=== PATIENT | female | born 1945 | race Caucasian/White ===

== ENCOUNTER 2023-07-24 17:35 | Emergency (ER) | payer MEDICARE, MEDICAID ==
[~2023-07-24] VITALS: Ht 152.4 cm; Wt 77.6 kg
[2023-07-24 17:47] LABS: BASOPHILS % (AUTO) 0 % (0-10); EOSINOPHILS # (AUTO) 0.2 10^3/uL (0.0-0.3); EOSINOPHILS % (AUTO) 2 % (0-10); HEMATOCRIT 36 % (35-52); HEMOGLOBIN 12.5 g/dL (11.5-16.0); LYMPHOCYTES # (AUTO) 1.2 10^3/uL (1.0-4.0); LYMPHOCYTES % (AUTO) 17 % (12-44); MEAN CORPUSCULAR HEMOGLOBIN 33 pg (25-34); MEAN CORPUSCULAR HGB CONC 35 g/dL (32-36); MEAN CORPUSCULAR VOLUME 95 fL (80-99); MEAN PLATELET VOLUME 9.2 fL (9.0-12.2); MONOCYTES # (AUTO) 0.5 10^3/uL (0.0-1.0); MONOCYTES % (AUTO) 7 % (0-12); NEUTROPHILS # (AUTO) 5.1 10^3/uL (1.8-7.8); NEUTROPHILS % (AUTO) 72 % (42-75); PLATELET COUNT 164 10^3/uL (130-400); WHITE BLOOD COUNT 7.1 10^3/uL (4.3-11.0)
--- NOTE | 2023-07-24 17:47 | ED Syncope ---
General Stated Complaint: NEAR SYNCOPE, UTI Source of Information: Patient, EMS Exam Limitations: No Limitations History of Present Illness Date Seen by Provider: Jul 24, 2023 Time Seen by Provider: 17:37 Initial Comments 77yoF with PMH of HTN and recent diagnosis of a UTI coming in via EMS from home after a syncopal episode. The patient got home from [facility] earlier, had suprapubic discomfort and dysuria. She went to walk-in care, had a urinalysis done and they stated that she had a bad UTI per the patient. She was started on ciprofloxacin which she took 1 dose. She went to [facility], then later went home. She had an episode of diarrhea that was nonbloody, and while sitting on the toilet, passed out. She woke up on the floor. Called EMS shortly after. She is unsure if she hit her head, does not believe she did, denies any headache, neck pain, back pain, extremity pain, or pain anywhere else. This is never really happened before. Denies any nausea, vomiting, fever, chills, focal weakness or numbness, or any other concerns. Allergies and Home Medications Allergies Coded Allergies: No Known Drug Allergies (Unverified , 07/24/23) Patient Home Medication List Home Medication List Reviewed: Yes Potassium Chloride (Potassium Chloride) 20 Meq Tablet.er, 20 MEQ PO DAILY Prescribed by: MISTY GUARDADO on 07/24/23 168 Review of Systems Constitutional: No fever EENTM: no symptoms reported Respiratory: no symptoms reported Cardiovascular: syncope Gastrointestinal: no symptoms reported Genitourinary: see HPI Musculoskeletal: no symptoms reported Skin: no symptoms reported Psychiatric/Neurological: No Symptoms Reported All Other Systems Reviewed Negative Unless Noted: Yes Past Elrtcws-Ykgive-Kluclb Hx Patient Social History Tobacco Use?: No Physical Exam Vital Signs Vital Signs - First Documented 07/24/23 17:38 Temp 36.6 Pulse 78 Resp 16 B/P (MAP) 157/67 (97) Pulse Ox 96 O2 Delivery Room Air Capillary Refill : Height, Weight, BMI Height: '" Weight: lbs. oz. kg; BMI Method: General Appearance: No Apparent Distress, WD/WN HEENT: PERRL/EOMI, Normal ENT Inspection, Pharynx Normal Neck: Full Range of Motion, Normal Inspection, Non Tender, Supple Cardiovascular: Regular Rate, Rhythm, No Edema, Normal Peripheral Pulses Respiratory: Chest Non Tender, Lungs Clear, Normal Breath Sounds, No Accessory Muscle Use, No Respiratory Distress Gastrointestinal: Normal Bowel Sounds, Non Tender, Soft; No Distended, No Guarding Back: Normal Inspection, No CVA Tenderness, No Vertebral Tenderness Extremities: Normal Capillary Refill, Normal Inspection, Normal Range of Motion, Non Tender, No Calf Tenderness, No Pedal Edema Neurologic/Psychiatric: Alert, Oriented x3, No Motor/Sensory Deficits, Normal 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, 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 Norm as Tested, Other (normal finger to nose, normal gait) Cranial Nerves: Normal Hearing, Normal Speech, PERRL Coordination/Gait: Normal Finger to Nose, Normal Gait Motor/Sensory: No Motor Deficit, No Sensory Deficit, No Pronator Drift Skin: Normal Color, Warm/Dry Progress/Results/Core Measures Results/Orders Lab Results Laboratory Tests Test 07/24/23 17:44 Range/Units White Blood Count 7.1 4.3-11.0 10^3/uL Red Blood Count 3.76 L 3.80-5.11 10^6/uL Hemoglobin 12.5 11.5-16.0 g/dL Hematocrit 36 35-52 % Mean Corpuscular Volume 95 80-99 fL Mean Corpuscular Hemoglobin 33 25-34 pg Mean Corpuscular Hemoglobin Concent 35 32-36 g/dL Red Cell Distribution Width 12.7 10.0-14.5 % Platelet Count 164 130-400 10^3/uL Mean Platelet Volume 9.2 9.0-12.2 fL Immature Granulocyte % (Auto) 1 % Neutrophils (%) (Auto) 72 42-75 % Lymphocytes (%) (Auto) 17 12-44 % Monocytes (%) (Auto) 7 0-12 % Eosinophils (%) (Auto) 2 0-10 % Basophils (%) (Auto) 0 0-10 % Neutrophils # (Auto) 5.1 1.8-7.8 10^3/uL Lymphocytes # (Auto) 1.2 1.0-4.0 10^3/uL Monocytes # (Auto) 0.5 0.0-1.0 10^3/uL Eosinophils # (Auto) 0.2 0.0-0.3 10^3/uL Basophils # (Auto) 0.0 0.0-0.1 10^3/uL Immature Granulocyte # (Auto) 0.0 0.0-0.1 10^3/uL Sodium Level 129 L 135-145 MMOL/L Potassium Level 3.1 L 3.6-5.0 MMOL/L Chloride Level 93 L 98-107 MMOL/L Carbon Dioxide Level 21 21-32 MMOL/L Anion Gap 15 H 5-14 MMOL/L Blood Urea Nitrogen 9 7-18 MG/DL Creatinine 0.95 0.60-1.30 MG/DL Estimat Glomerular Filtration Rate 61 BUN/Creatinine Ratio 9 Glucose Level 142 H 70-105 MG/DL Calcium Level 9.2 8.5-10.1 MG/DL Corrected Calcium 9.0 8.5-10.1 MG/DL Total Bilirubin 0.8 0.1-1.0 MG/DL Aspartate Amino Transf (AST/SGOT) 23 5-34 U/L Alanine Aminotransferase (ALT/SGPT) 14 0-55 U/L Alkaline Phosphatase 94 40-136 U/L Troponin I < 0.30 <0.30 NG/ML Total Protein 6.4 6.4-8.2 GM/DL Albumin 4.2 3.2-4.5 GM/DL My Orders Orders - MISTY GUARDADO MD Ct Head Wo (07/24/23 17:39) Cbc With Automated Diff (07/24/23 17:39) Comprehensive Metabolic Panel (07/24/23 17:39) Troponin I Fs (07/24/23 17:39) Chest 1 View Ap/Pa Only (07/24/23 17:39) Ed Iv/Invasive Line Start (07/24/23 17:39) Ekg Tracing (07/24/23 17:39) Monitor-Rhythm Ecg Trace Only (07/24/23 17:39) Vital Signs/I&O 07/24/23 17:38 Temp 36.6 Pulse 78 Resp 16 B/P (MAP) 157/67 (97) Pulse Ox 96 O2 Delivery Room Air Progress Progress Note : Progress Note 77-year-old female with above history coming in after a syncopal episode. ABCs were intact and vitals were stable on presentation. Physical exam reassuring including a nonfocal neuro exam. EKG ordered and interpreted by me showing no acute ischemic changes, no delta wave, QTc 416, narrow QRS. Chest x-ray ordered and interpreted by me showing normal cardiac silhouette, no pneumothorax, no obvious opacities. CT head ordered and interpreted by me showing no obvious intracranial hemorrhage. An IV was placed and basic labs were obtained and were significant for mild hypokalemia, mild hyponatremia, normal creatinine, normal hemoglobin, and negative troponin. She is low risk per the [place] syncope rule. Patient well-appearing and at her baseline. I believe she stable for discharge with outpatient follow-up. She was sent home with strict return precautions. Initial ECG Impression Date: Jul 24, 2023 Initial ECG Impression Time: 17:40 Initial ECG Rate: 77 Initial ECG Rhythm: Normal Sinus Comment Narrow QRS, borderline left axis deviation, no STEMI, subtle ST depression in the high lateral leads which is nonspecific Diagnostic Imaging Diagonstic Imaging: Xray (chest), CT (head) Comments NAME: SUSSY MOTLEY MED REC#: [id number] PT STATUS: REG ER : 1945 PHYSICIAN: MISTY GUARDADO MD ADMIT DATE: 07/24/23/ER FS Signed Date of Exam:07/24/23 CT HEAD WO EXAMINATION: CT head without contrast. TECHNIQUE: Multiple contiguous axial images were obtained through the brain without the use of intravenous contrast. All CT scans use one or more of the following dose optimizing techniques: automated exposure control, MA and/or KvP adjustment based on patient size and exam type or iterative reconstruction. HISTORY: Hit head. Syncopal episode. Head pain. COMPARISON: None available. FINDINGS: No large acute territorial ischemia, mass or hemorrhage. No midline shift or mass effect. Decreased attenuation is seen in the periventricular and subcortical white matter. The ventricles and cortical sulci are prominent. The basilar cisterns are patent and unremarkable. The orbits are normal. Mucosal thickening is seen in the maxillary sinuses. Mastoid air cells are clear. No soft tissue abnormality is seen. No osseus lesion or fracture is seen. IMPRESSION: 1. No large acute territorial ischemia, mass or hemorrhage. 2. Chronic microvascular disease. 3. Generalized parenchymal volume loss. Dictated by: Dictated on workstation # [id number] Dict: 07/24/231811 Trans: 07/24/231814 [facility] [id number] Interpreted by: ALIDA SU DO Electronically signed by: ALIDA SU DO 07/24/231814 NAME: SUSSY MOTLEY [facility] REC#: [id number] PT STATUS: REG ER : 1945 PHYSICIAN: MISTY GUARDADO MD ADMIT DATE: 07/24/23/ER FS Signed Date of Exam:07/24/23 CHEST 1 VIEW AP/PA ONLY EXAMINATION: Chest 1 view. HISTORY: Syncopal episode. Chest pain. COMPARISON: None available. FINDINGS: The lung volumes are normal. No focal consolidation is seen. No large pleural effusion or pneumothorax is seen. The cardiomediastinal silhouette is normal in size and contour. No acute osseous abnormality is seen. IMPRESSION: No acute pleuroparenchymal process. Dictated by: Dictated on workstation # [id number] Dict: 07/24/231815 Trans: 07/24/231817 [facility] [id number] Interpreted by: ALIDA SU DO Electronically signed by: ALIDA SU DO 07/24/231817 Departure Impression Primary Impression: Syncope Qualified Codes: R55 - Syncope and collapse Additional Impressions: Hyponatremia Hypokalemia Disposition: 01 HOME, SELF-CARE Condition: Stable Departure-Patient Inst. Decision time for Depature: 18:35 Patient Instructions: Fainting, Adult ED, Hyponatremia (DC), High Potassium Diet Add. Discharge Instructions: We are not seeing any evidence of heart attack or any other significant abnorma lities. It is likely you were slightly dehydrated, and when you are pushing on the toilet, had a vasovagal episode where it made you pass out. These are not uncommon. Please follow-up with your regular doctor if you are not seeing improvement in the next couple of days. It is possible you may develop nausea and vomiting since you have diarrhea, and could have a viral illness as well. Your sodium is slightly low and your potassium is slightly low. These did not cause the symptoms today, but it is worth noting. We recommend taking a potassium supplement for the next week which was sent to your pharmacy. Nausea medicines were also sent in case you develop nausea. Scripts Ondansetron (Ondansetron Odt) 4 Mg Tab.rapdis 4 MG SL Q6H PRN for NAUSEA/VOMITING for 5 Days, #20 TAB Prov: MISTY GUARDADO MD 07/24/23 Potassium Chloride (Potassium Chloride) 20 Meq Tablet.er 20 MEQ PO DAILY for 7 Days, #7 TAB Prov: MISTY GUARDADO MD 07/24/23 MISTY GUARDADO MD Jul 24, 2023 17:47
[2023-07-24 18:08] LABS: ALANINE AMINOTRANSFERASE 14 U/L (0-55); ALBUMIN 4.2 GM/DL (3.2-4.5); ALKALINE PHOSPHATASE 94 U/L (40-136); BILIRUBIN,TOTAL 0.8 MG/DL (0.1-1.0); BUN/CREATININE RATIO 9; CALCIUM 9.2 MG/DL (8.5-10.1); CARBON DIOXIDE 21 MMOL/L (21-32); CHLORIDE 93 MMOL/L (98-107); CREATININE SERUM 0.95 MG/DL (0.60-1.30); GFR ESTIMATED 61; GLUCOSE 142 MG/DL (70-105); POTASSIUM 3.1 MMOL/L (3.6-5.0); SODIUM 129 MMOL/L (135-145); TOTAL PROTEIN 6.4 GM/DL (6.4-8.2)
--- NOTE | 2023-07-24 18:15 | Diagnostic Imaging Report ---
EXAMINATION: CT head without contrast. TECHNIQUE: Multiple contiguous axial images were obtained through the brain without the use of intravenous contrast. All CT scans use one or more of the following dose optimizing techniques: automated exposure control, MA and/or KvP adjustment based on patient size and exam type or iterative reconstruction. HISTORY: Hit head. Syncopal episode. Head pain. COMPARISON: None available. FINDINGS: No large acute territorial ischemia, mass or hemorrhage. No midline shift or mass effect. Decreased attenuation is seen in the periventricular and subcortical white matter. The ventricles and cortical sulci are prominent. The basilar cisterns are patent and unremarkable. The orbits are normal. Mucosal thickening is seen in the maxillary sinuses. Mastoid air cells are clear. No soft tissue abnormality is seen. No osseus lesion or fracture is seen. IMPRESSION: 1. No large acute territorial ischemia, mass or hemorrhage. 2. Chronic microvascular disease. 3. Generalized parenchymal volume loss. Dictated by: Dictated on workstation # [id number]
--- NOTE | 2023-07-24 18:18 | Diagnostic Imaging Report ---
EXAMINATION: Chest 1 view. HISTORY: Syncopal episode. Chest pain. COMPARISON: None available. FINDINGS: The lung volumes are normal. No focal consolidation is seen. No large pleural effusion or pneumothorax is seen. The cardiomediastinal silhouette is normal in size and contour. No acute osseous abnormality is seen. IMPRESSION: No acute pleuroparenchymal process. Dictated by: Dictated on workstation # [id number]
[2023-07-24] MEDS ORDERED: POTA-330 PO (18:21)
[2023-07-24] MEDS ORDERED: ONDA4TAB11 SL (18:22)
[2023-07-24] MEDS ORDERED: POTASSIUM CHLORIDE 20 MEQ TABLET PO ONE (18:30)
[2023-07-24] MEDS ORDERED: ONDANSETRON 4 MG ORAL DISSOLVE TABLET ONE (18:37)
[2023-07-24 18:55] VITALS: BP 132/79
== END 2023-07-24 18:56 | disposition home or self-care (01) ==
LOC: EDUNIT# 17:35 → ER FS 17:36
DX: R55 Syncope and collapse (principal); E87.1 Hypo-osmolality and hyponatremia; E87.6 Hypokalemia
CPT/HCPCS: 36415; 70450; 71045; 80053; 84484; 85025; 93005; 93041